=== PATIENT | male | born 1960 | race Caucasian/White ===

== ENCOUNTER 2020-04-04 14:06 | Outpatient (CLI) | payer MEDICARE, MEDICAID | END 2020-04-04 14:07 | disposition left against medical advice (07) | LOC: EMS 14:06 | DX: R55 Syncope and collapse (principal) ==

== ENCOUNTER 2021-03-17 08:00 | Outpatient (CLI) | payer MEDICARE, MEDICAID | END 2021-03-17 23:59 | disposition home or self-care (01) | LOC: LAB.N 08:00 | PROVIDERS: ATTEND Nurse Practitioner | DX: R09.81 Nasal congestion (principal); Z20.822 Contact with and (suspected) exposure to COVID-19 ==

== ENCOUNTER 2021-06-03 08:00 | Outpatient (CLI) | payer MEDICARE, MEDICAID ==
--- NOTE | 2021-06-03 17:02 | XRAY Report ---
PROCEDURE: Chest 2 View X-Ray INDICATIONS: HYPOXIA TECHNIQUE: 2 view(s) of the chest. COMPARISON: None. FINDINGS: Surgical changes and devices: None. Lungs and pleura: There is a small left pleural effusion. There is likely a trace right pleural effus ion. There are diffuse interstitial radiopacities bilaterally. Mediastinum: Mediastinal contours are normal. Heart size is enlarged. Bones and chest wall: No suspicious bony abnormalities. Soft tissues appear unremarkable. IMPRESSION: Bilateral pleural effusions, cardiomegaly, and interstitial radiopacities consistent wit h congestive failure. Reviewed by: Sabrina Melendez MD on 06/03/2021 5:00 PM PDT Approved by: Sabrina Melendez MD on 06/03/2021 5:00 PM PDT Station ID: [id number]
== END 2021-06-03 23:59 | disposition home or self-care (01) ==
LOC: DI.N 08:00
PROVIDERS: ATTEND Physician Assistant Medical
DX: J90 Pleural effusion, not elsewhere classified (principal); I51.7 Cardiomegaly; R09.02 Hypoxemia

== ENCOUNTER 2022-05-15 15:50 | Outpatient (CLI) | payer MEDICARE, MEDICAID ==
--- NOTE | 2022-05-16 03:03 | XRAY Report ---
PROCEDURE: Hip w/Pelvis 2-3V RT INDICATIONS: HIP PAIN RIGHT TECHNIQUE: AP pelvis with lateral view of the right hip. COMPARISON: None. FINDINGS: Bones: No fractures or dislocations. Pelvic ring appears intact. There is moderate superior joint space narrowing the hips bilaterally with subchondral sclerosis and cystic changes. Mild collar osteo phytosis demonstrated bilaterally. There is bony prominence of the femoral head-neck junction also no reinier bilaterally. No suspicious bony lesions. Soft tissues: The visualized bowel gas pattern is normal. No suspicious soft tissue calcifications. IMPRESSION: 1. No fracture or dislocation. 2. 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 3. Bony prominence of the femoral head-neck junction may be be associated with femoral acetabular imp ingement in the proper clinical context. Reviewed by: Lazaro Knight MD on 05/16/2022 3:02 AM PDT Approved by: Lazaro Knight MD on 05/16/2022 3:02 AM PDT Station ID: [id number]
== END 2022-05-15 15:51 | disposition home or self-care (01) ==
LOC: DI 15:50
PROVIDERS: ATTEND Physician Assistant
DX: M16.0 Bilateral primary osteoarthritis of hip (principal)

== ENCOUNTER 2022-05-15 17:45 | Emergency (ER) | payer MEDICARE, MEDICAID ==
--- NOTE | 2022-05-15 18:43 | ED Physician Documentation ---
History of Present Illness - Stated complaint Stated Complaint: L LEG SWELLING - Chief complaint Chief Complaint: Ext Problem - History obtained from History obtained from: Patient - Additonal information Additional information: 61-year-old gentleman with ESRD felt a lump behind his left knee this morning at about 930 before dialysis. He also noted that leg was swollen. After dialysis the symptoms were resolved but he was advised to come here to rule out DVT. No history of thromboembolic disease. PD PAST MEDICAL HISTORY - Past Medical History Cardiovascular: Congestive heart failure, Hypertension Respiratory: None Endocrine/Autoimmune: None GI: None : Dialysis HEENT: None Psych: None Musculoskeletal: None Derm: None - Past Surgical History Past Surgical History: Yes General: Appendectomy - Present Medications Home Medications: Ambulatory Orders Medication Instructions Recorded Confirmed Albuterol [Ventolin Hfa] 2 puffs INH Q4H PRN #1 inhaler 02/06/14 Amoxicillin [Amoxil] 500 mg PO TID #15 capsule 02/06/14 Aspirin [Aspir 81] 81 mg ORAL DAILY 02/06/14 02/06/14 Carvedilol 25 mg ORAL DAILY 02/06/14 02/06/14 Cinacalcet HCl [Sensipar] 60 mg ORAL DAILY 02/06/14 02/06/14 Folic Acid/Vit B Complex and C 1 tab ORAL DAILY 02/06/14 02/06/14 [Dialyvite Tablet] Furosemide 80 mg ORAL DAILY 02/06/14 02/06/14 Sevelamer Carbonate [Renvela] 3,200 mg ORAL TIDWM 02/06/14 02/06/14 amLODIPine [Norvasc] 10 mg ORAL DAILY 02/06/14 02/06/14 dexAMETHasone [Decadron] 4 mg PO DAILY #5 tablet 02/06/14 guaiFENesin/CODEINE [Robitussin AC] 10 ml PO Q6H PRN #240 ml 02/06/14 minoxidiL [Minoxidil] 2.5 mg ORAL DAILY 02/06/14 02/06/14 - Allergies Allergies/Adverse Reactions: Allergies Allergy/AdvReac Type Severity Reaction Status Date / Time No Known Drug Allergies Allergy Verified 05/15/22 18:03 - Social History Does the pt smoke?: No Smoking Status: Never smoker Does the pt drink ETOH?: No Does the pt have substance abuse?: No - Immunizations Immunizations are current?: Yes PD ED PE NORMAL - Vitals Vital signs reviewed: Yes - General General: Alert and oriented X 3, No acute distress - Derm Derm: Normal color, Warm and dry - Extremities Extremities: Other (Symmetric legs without tenderness, no palpable lumps or bumps in the popliteal fossa or elsewhere on the left leg.) - Neuro Neuro: Alert and oriented X 3, Normal speech Results - Vitals Vitals: Vital Signs - 24 hr 05/15/22 17:52 Temperature 37.5 C Heart Rate 72 Respiratory 16 Rate Blood Pressure 171/83 H O2 Saturation 95 Oxygen O2 Source Room air - Rads (name of study) lle DVT SONO Relevant Findings:: Final report received, EMP independent interpretation of test Departure - Departure Disposition: 01 Home, Self Care Clinical Impression: Left leg pain, Sheets's cyst of knee Condition: Good Record reviewed to determine appropriate education?: Yes Instructions: ED Cyst Sheets Comments: Your ultrasound was negative for blood clots, but that said you do have a popliteal cyst, likely what is called a Bakers cyst. This is a joint problem where the joint fluid from the posterior knee kind of comes out. You can talk with your primary care physician about an orthopedic referral for that, return for new or worsening symptoms.
--- NOTE | 2022-05-15 19:26 | Ultrasound Report ---
PROCEDURE: Duplex Ext Veins Left INDICATIONS: leg pain/swelling TECHNIQUE: Real-time imaging, as well as color and pulse Doppler interrogation, were performed of the lower extr emity deep veins from the inguinal ligament to the popliteal fossa. COMPARISON: None. FINDINGS: The deep veins are normally compressible, and free of intraluminal thrombus. Color and pu lse Doppler demonstrate normal phasic intraluminal flow. There is normal augmentation response to di stal compression maneuver. 5.9 cm popliteal cyst IMPRESSION: No evidence of left lower extremity deep venous thrombosis A 5.9 cm popliteal cyst is present, possibly a Sheets's cyst Reviewed by: Ramsey Linares MD on 05/15/2022 7:24 PM PDT Approved by: Ramsey Linares MD on 05/15/2022 7:24 PM PDT Station ID: [id number]
[2022-05-15 19:57] VITALS: BP 160/77
== END 2022-05-15 19:56 | disposition home or self-care (01) ==
LOC: ED 17:45
DX: M71.22 Synovial cyst of popliteal space [Baker], left knee (principal); M16.0 Bilateral primary osteoarthritis of hip
CPT/HCPCS: 99282; 99284

== ENCOUNTER 2023-07-28 14:39 | Outpatient (CLI) | payer MEDICARE ==
[2023-07-28 17:46] LABS: BASOPHILS # (AUTO) 0.1 10^3/uL (0.0-0.1); BASOPHILS % (AUTO) 1.2 %; EOSINOPHILS # (AUTO) 0.1 10^3/uL (0.0-0.7); EOSINOPHILS % (AUTO) 1.4 %; HCT - HEMATOCRIT 39.7 % (42.0-52.0); HGB - HEMOGLOBIN 12.7 g/dL (14.0-18.0); LYMPHOCYTES % (AUTO) 17.3 %; MEAN CORPUSCULAR HEMOGLOBIN 32.4 pg (27.0-31.0); MEAN CORPUSCULAR VOLUME 101.3 fL (80.0-94.0); MEAN PLATELET VOLUME 10.9 fL (7.4-11.4); MONOCYTES # (AUTO) 0.6 10^3/uL (0.0-1.0); MONOCYTES % (AUTO) 11.2 %; NEUTROPHILS # (AUTO) 3.9 10^3/uL (1.5-6.6); NEUTROPHILS % (AUTO) 68.7 %; PLT - PLATELET COUNT 173 10^3/uL (130-450); RED BLOOD COUNT 3.92 10^6/uL (4.70-6.10); RED CELL DISTRIBUTION WIDTH 13.7 % (12.0-15.0); WHITE BLOOD COUNT 5.7 x10^3/uL (4.8-10.8)
[2023-07-28 17:55] LABS: % IRON SATURATION 38 % (20-50); ALBUMIN 4.1 g/dL (3.2-5.5); ALBUMIN/GLOBULIN RATIO 1.2 (1.0-2.2); ALKALINE PHOSPHATASE 81 IU/L (42-121); ALT ALANINE AMINOTRANSFERASE 11 IU/L (10-60); AST ASPARTATE AMINOTRANSFERASE 13 IU/L (10-42); BUN - BLOOD UREA NITROGEN 52 mg/dL (6-20); CALCIUM 8.7 mg/dL (8.5-10.3); CARBON DIOXIDE - CO2 26 mmol/L (21-32); CHLORIDE 100 mmol/L (101-111); CHOL/HDL RATIO 3.2 (<5.0); CHOLESTEROL 121 mg/dL; CREATININE 6.1 mg/dL (0.6-1.3); GFR - MDRD 9 (>89); GLUCOSE 105 mg/dL (74-104); HDL CHOLESTEROL 38 mg/dL; IRON 114 ug/dL (50-212); LDL CHOLESTEROL,CALCULATED 65 mg/dL; LDL/HDL RATIO 1.7 (<3.6); POTASSIUM 4.6 mmol/L (3.5-4.5); SODIUM 137 mmol/L (135-145); TOTAL IRON BINDING CAPACITY 297 ug/dL (250-450); TOTAL PROTEIN 7.6 g/dL (6.4-8.9); TRANSFERRIN 212 mg/dL (203-362); TRIGLYCERIDES 92 mg/dL (48-352); VLDL CHOLESTEROL 18 mg/dL
[2023-07-28 17:57] LABS: INR 1.5 (0.8-1.2); PT - PROTHROMBIN TIME 16.4 secs (9.9-12.6)
[2023-07-28 18:13] LABS: FERRITIN 694.7 ng/mL (23.9-336.2)
[2023-07-28 20:34] LABS: ESTIMATED AVERAGE GLUCOSE 97 mg/dL (70-100)
== END 2023-07-28 14:40 | disposition home or self-care (01) ==
LOC: LAB.N 14:39
DX: Z00.00 Encounter for general adult medical examination without abnormal findings (principal); R06.02 Shortness of breath; N18.9 Chronic kidney disease, unspecified; I48.91 Unspecified atrial fibrillation
CPT/HCPCS: 36415; 80053; 80061; 82728; 83036; 83540; 83721; 83880; 84153; 84443; 84466; 85025; 85610; 85730

== ENCOUNTER 2023-09-08 08:00 | Outpatient (CLI) | payer MEDICARE, MEDICAID | END 2023-09-08 23:59 | disposition home or self-care (01) | LOC: LAB.WCP 08:00 | DX: I48.91 Unspecified atrial fibrillation (principal); Z51.81 Encounter for therapeutic drug level monitoring ==

== ENCOUNTER 2023-09-22 08:00 | Outpatient (CLI) | payer MEDICARE, MEDICAID | END 2023-09-22 23:59 | disposition home or self-care (01) | LOC: LAB.N 08:00 | DX: Z51.81 Encounter for therapeutic drug level monitoring (principal); Z79.01 Long term (current) use of anticoagulants; I48.91 Unspecified atrial fibrillation ==